=== PATIENT | male | born 1950 | race Caucasian/White ===

== ENCOUNTER 2017-06-28 18:31 | Emergency (ER) | payer MEDICARE, OTHER ==
[2017-06-28] MEDS ORDERED: SODIUM CHLORIDE 0.9% 1,000 ML IV ONE (18:41)
--- NOTE | 2017-06-28 18:55 | ED Physician Documentation ---
History of Present Illness - Stated complaint Stated Complaint: F/N/V - Chief complaint Chief Complaint: Fever - History obtained from History obtained from: Patient, Family - History of Present Illness Pain level max: 4 Pain level now: 4 Improved by: nothing Worsened by: nothing - Additonal information Additional information: Patient is a 67-year-old male who presents to the emergency department complaining of a fever for the past 2 days. He also states he has had a "sour stomach". This is been ongoing for the past month. He states he has had EGDs and colonoscopies several times and he thinks they found an ulcer once. He thinks he is supposed to be on medication but is unsure. He does not know what medications he takes on a daily basis. He states his allergies are to oxycodone and "other stuff". 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 Recent prostate biopsy for prostate CA. no current chemotherapy or radiation. Family member recently was diagnosed with influenza. They are going to try to find someone to find his medications at home so that we can get an accurate medication list as well as a allergy list. Review of Systems Ten Systems: 10 systems reviewed and negative Constitutional: reports: Fever Nose: denies: Rhinorrhea / runny nose, Congestion Throat: denies: Sore throat Cardiac: denies: Chest pain / pressure Respiratory: denies: Dyspnea, Cough, Hemoptysis, Wheezing GI: reports: Abdominal Pain (crampy, diffuse), Nausea, Vomiting : denies: Dysuria Skin: denies: Rash, Abrasion (s) Musculoskeletal: denies: Neck pain, Back pain Neurologic: denies: Headache PD PAST MEDICAL HISTORY - Past Medical History Past Medical History: Yes Endocrine/Autoimmune: Type 2 diabetes - Past Surgical History Past Surgical History: Yes Other past surgical history: liver transplant - Present Medications Home Medications: Ambulatory Orders Medication Instructions Recorded Confirmed Amoxicillin/Potassium Clav [Amox 1 each PO BID 06/28/17 Tr-K Clv 875-125 mg Tab] Finasteride 5 mg PO DAILY 06/28/17 Glimepiride [Amaryl] 4 mg PO BID 06/28/17 Lisinopril 10 mg PO DAILY 06/28/17 Metformin HCl 500 mg PO BID 06/28/17 Omeprazole 40 mg PO DAILY 06/28/17 Ondansetron Odt [Zofran] 4 mg TL Q6H PRN #10 tablet 06/28/17 Pantoprazole Sodium [Protonix] 20 mg PO DAILY #14 tablet. 06/28/17 Pravastatin [Pravachol] 40 mg ORAL DAILY 06/28/17 Tacrolimus 0.5 mg PO BID 06/28/17 06/28/17 - Allergies Allergies/Adverse Reactions: Allergies Allergy/AdvReac Type Severity Reaction Status Date / Time acetaminophen [From Tylenol] Allergy Rash Verified 06/28/17 18:40 bee venom protein (honey bee) Allergy Rash Verified 06/28/17 18:40 NSAIDS (Non-Steroidal Allergy Unknown Verified 06/28/17 18:40 Anti-Inflamma oxycodone Allergy Rash Verified 06/28/17 18:40 tetracycline Allergy Hives Verified 06/28/17 18:40 tramadol Allergy Rash Verified 06/28/17 18:40 - Living Situation Living Situation: reports: With family Living Arrangement: reports: At home - Social History Does the pt smoke?: No Does the pt drink ETOH?: No Does the pt have substance abuse?: No - Family History Family history: reports: Non contributory PD ED PE NORMAL - Vitals Vital signs reviewed: Yes - General General: Alert and oriented X 3, No acute distress, Well developed/nourished - HEENT HEENT: PERRL, Moist mucous membranes - Neck Neck: Supple, no meningeal sign - Cardiac Cardiac: RRR, Strong equal pulses - Respiratory Respiratory: No respiratory distress, Clear bilaterally - Abdomen Abdomen: Soft, Non distended, Other (mild diffuse TTP without peritoneal signs) - Back Back: No CVA TTP, No spinal TTP - Derm Derm: Warm and dry, No rash - Extremities Extremities: No calf tenderness / cord - Neuro Neuro: Alert and oriented X 3 - Psych Psych: Normal mood, Normal affect Results - Vitals Vitals: Vital Signs - 24 hr 06/28/17 06/28/17 06/28/17 18:36 21:20 23:10 Temperature 38.1 C H 37.5 C 37.3 C Heart Rate 118 H 105 H 117 H Respiratory 18 18 12 Rate Blood Pressure 139/95 H 121/84 H 109/65 O2 Saturation 96 95 95 Oxygen O2 Source Room air - Labs Labs: Laboratory Tests 06/28/17 06/28/17 06/28/17 18:50 18:50 18:50 WBC 6.8 RBC 5.26 Hgb 15.9 Hct 46.6 MCV 88.6 MCH 30.2 MCHC 34.1 RDW 15.1 H Plt Count 166 MPV 7.3 L Neut # 5.8 Lymph # 0.6 L Geary # 0.3 Eos # 0.1 Baso # 0.0 Absolute Nucleated RBC 0.01 Nucleated RBC % 0.1 Sodium 138 Potassium 4.0 Chloride 101 Carbon Dioxide 21 Anion Gap 16.0 H BUN 28 H Creatinine 1.3 H Estimated GFR (MDRD) 55 L Glucose 246 H Lactic Acid 1.9 Calcium 9.5 Total Bilirubin 1.9 H AST 34 ALT 31 Alkaline Phosphatase 45 Total Protein 8.2 Albumin 4.5 Globulin 3.7 Albumin/Globulin Ratio 1.2 Lipase 39 Urine Color Urine Clarity Urine pH Ur Specific [place] Urine Protein Urine Glucose (UA) Urine Ketones Urine Occult Blood Urine Nitrite Urine Bilirubin Urine Urobilinogen Ur Leukocyte Esterase Urine RBC Urine WBC Ur Squamous Epith Cells Urine Bacteria Urine Casts Urine Mucus Ur Microscopic Review Urine Culture Comments Influenza A (Rapid) Influenza B (Rapid) Influenza Types A,B Ag 06/28/17 06/28/17 19:07 19:35 WBC RBC Hgb Hct MCV MCH MCHC RDW Plt Count MPV Neut # Lymph # Ge[place] # Eos # Baso # Absolute Nucleated RBC Nucleated RBC % Sodium Potassium Chloride Carbon Dioxide Anion Gap BUN Creatinine Estimated GFR (MDRD) Glucose Lactic Acid Calcium Total Bilirubin AST ALT Alkaline Phosphatase Total Protein Albumin Globulin Albumin/Globulin Ratio Lipase Urine Color YELLOW Urine Clarity CLEAR Urine pH 5.5 Ur Specific [place] >=1.030 H Urine Protein TRACE Urine Glucose (UA) 250 H Urine Ketones 15 H Urine Occult Blood LARGE H Urine Nitrite NEGATIVE Urine Bilirubin NEGATIVE Urine Urobilinogen 1 (NORMAL) Ur Leukocyte Esterase NEGATIVE Urine RBC TNTC H Urine WBC 0-3 Ur Squamous Epith Cells RARE Squamous Urine Bacteria Few Urine Casts 0-2 Hyaline Casts Urine Mucus Moderate Strands Ur Microscopic Review INDICATED Urine Culture Comments NOT INDICATED Influenza A (Rapid) Negative Influenza B (Rapid) Negative Influenza Types A,B Ag - PD MEDICAL DECISION MAKING - ED course Complexity details: reviewed results, re-evaluated patient, considered differential, d/w patient, d/w family ED course: Patient is a 67-year-old male who presents to the emergency department with what appears to be 2 issues. The first appears to be nausea and vomiting for the past month. Likely secondary to recurrent ulcers. Given Protonix and will place him back on Protonix for this. Also given Zofran and his nausea resolved. Also appears to have a viral syndrome. No coughing. Has been exposed to viral syndromes recently. No cough, hypoxia or tachypnea to suggest pneumonia. CXR held after discussion with patient and family. Given IV fluids and feels better. Tolerating p.o. well. Lactate is normal. Will return if he worsens. Patient and family counseled regarding signs and symptoms for which I believe and urgent re-evaluation would be necessary. Patient with good understanding of and agreement to plan and is comfortable going home at this time This document was made in part using voice recognition software. While efforts are made to proofread this document, sound alike and grammatical errors may occur. Departure - Departure Disposition: 01 Home, Self Care Clinical Impression: Fever Qualifiers: Fever type: unspecified Qualified Code(s): R50.9 - Fever, unspecified Vomiting Qualifiers: Vomiting type: unspecified Vomiting Intractability: non-intractable Nausea presence: with nausea Qualified Code(s): R11.2 - Nausea with vomiting, unspecified Condition: Good Instructions: ED Fever Unconf Cause, ED Nausea Vomiting Follow-Up: your,doctor in 3 days for recheck [Other] Prescriptions: Ondansetron Odt [Zofran] 4 mg TL Q6H PRN #10 tablet PRN Reason: Nausea / Vomiting Pantoprazole Sodium [Protonix] 20 mg PO DAILY #14 tablet. Comments: Drink plenty of fluids and rest. Return if Paul worsens. Discharge Date/Time: 06/28/17 23:20
[2017-06-28 19:03] LABS: BASOPHILS % (AUTO) 0.4 %; EOSINOPHILS # (AUTO) 0.1 10^3/uL (0.0-0.7); EOSINOPHILS % (AUTO) 1.6 %; HGB - HEMOGLOBIN 15.9 g/dL (14.0-18.0); LYMPHOCYTES # (AUTO) 0.6 10^3/uL (1.5-3.5); LYMPHOCYTES % (AUTO) 8.3 %; MEAN CORPUSCULAR HEMOGLOBIN 30.2 pg (27.0-31.0); MEAN CORPUSCULAR HGB CONC 34.1 g/dL (32.0-36.0); MEAN CORPUSCULAR VOLUME 88.6 fL (80.0-94.0); MEAN PLATELET VOLUME 7.3 fL (7.4-11.4); MONOCYTES # (AUTO) 0.3 10^3/uL (0.0-1.0); MONOCYTES % (AUTO) 4.8 %; NEUTROPHILS # (AUTO) 5.8 10^3/uL (1.5-6.6); NEUTROPHILS % (AUTO) 84.9 %; PLT - PLATELET COUNT 166 10^3/uL (130-450); RED BLOOD COUNT 5.26 10^6/uL (4.70-6.10); RED CELL DISTRIBUTION WIDTH 15.1 % (12.0-15.0); WHITE BLOOD COUNT 6.8 x10^3/uL (4.8-10.8)
[2017-06-28 19:16] LABS: ALBUMIN 4.5 g/dL (3.2-5.5); ALBUMIN/GLOBULIN RATIO 1.2 (1.0-2.2); BILIRUBIN,TOTAL 1.9 mg/dL (0.2-1.0); CALCIUM 9.5 mg/dL (8.5-10.3); CREATININE 1.3 mg/dL (0.6-1.2); TOTAL PROTEIN 8.2 g/dL (6.7-8.2)
[2017-06-28 19:45] LABS: GLUCOSE, URINE (UA) 250 mg/dL (NEGATIVE); KETONES,URINE (UA) 15 mg/dL (NEGATIVE); LEUKOCYTE ESTERASE, URINE NEGATIVE (NEGATIVE); NITRITE,URINE NEGATIVE (NEGATIVE); OCCULT BLOOD,URINE LARGE (NEGATIVE); PH,URINE 5.5 PH (5.0-7.5); PROTEIN,URINE TRACE mg/dL (NEGATIVE); UROBILINOGEN,URINE 1 (NORMAL) E.U./dL (NORMAL)
[2017-06-28 19:55] LABS: BACTERIA,URINE Few /HPF (None Seen); BILIRUBIN,URINE NEGATIVE (NEGATIVE); CASTS, URINE 0-2 Hyaline Casts /LPF; CLARITY,URINE CLEAR (CLEAR); ICTOTEST,URINE NEGATIVE; MUCUS,URINE Moderate Strands; RBC,URINE TNTC /HPF (0-5); SQUAMOUS EPITHELIAL CELL,UR RARE Squamous (<= Few)
[2017-06-28] MEDS ORDERED: ONDANSETRON 4 MG/2 ML VIAL IVP STA (21:02)
[2017-06-28] MEDS ORDERED: PANTOPRAZOLE 40 MG VIAL IVP STA (21:03)
[2017-06-28 23:11] VITALS: BP 109/65
== END 2017-06-28 23:20 | disposition home or self-care (01) ==
LOC: ED 18:31
DX: R50.9 Fever, unspecified (principal); R11.2 Nausea with vomiting, unspecified; E11.9 Type 2 diabetes mellitus without complications; Z79.84 Long term (current) use of oral hypoglycemic drugs; Z94.4 Liver transplant status
CPT/HCPCS: 36415; 80053; 81001; 81003; 83605; 83690; 85025; 87086; 87275; 87276; 96361; 96374; 96375; 99283

== ENCOUNTER 2020-12-15 17:55 | Emergency (ER) | payer MEDICARE, OTHER ==
--- NOTE | 2020-12-15 18:26 | ED Physician Documentation ---
History of Present Illness - Stated complaint Stated Complaint: ABNORMAL LABS - Chief complaint Chief Complaint: General - Additonal information Additional information: 70-year-old male presents the emergency department for evaluation of reportedly elevated potassium. 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 He receives Chemotherapy sessions every 3 weeks with a total of 6 planned. He has undergone 3 thus far. He also has a history of a liver transplant 15 years ago secondary to liver cancer. He is currently on tacr olimus as an immune suppressant. He had screening labs obtained at the [facility] Friday and was notified today that his potassium was 5.8 and he should seek evaluation in the emergency department. He denies any chest pain or shortness of air. He would not be seeking care in the emergency department if he had not been notified otherwise. Review of Systems Constitutional: reports: Other (hair loss). denies: Fever, Chills Eyes: reports: Reviewed and negative Nose: reports: Reviewed and negative Throat: reports: Reviewed and negative Cardiac: denies: Chest pain / pressure, Palpitations Respiratory: denies: Dyspnea, Cough GI: reports: Abdominal Pain, Nausea, Vomiting : denies: Dysuria, Frequency Skin: denies: Rash, Lesions Musculoskeletal: reports: Reviewed and negative PD PAST MEDICAL HISTORY - Past Medical History Endocrine/Autoimmune: Type 2 diabetes GI: GERD, Hepatitis, Cirrhosis : Other - Past Surgical History Past Surgical History: Yes - Present Medications Home Medications: Ambulatory Orders Medication Instructions Recorded Confirmed Amoxicillin/Potassium Clav [Amox 1 each PO BID 06/28/17 Tr-K Clv 875-125 mg Tab] Finasteride 5 mg PO DAILY 06/28/17 Glimepiride [Amaryl] 4 mg PO BID 06/28/17 Metformin HCl 500 mg PO BID 06/28/17 Omeprazole 40 mg PO DAILY 06/28/17 Ondansetron Odt [Zofran] 4 mg TL Q6H PRN #10 tablet 06/28/17 Pantoprazole Sodium [Protonix] 20 mg PO DAILY #14 tablet. 06/28/17 Pravastatin [Pravachol] 40 mg ORAL DAILY 06/28/17 Tacrolimus 0.5 mg PO BID 06/28/17 06/28/17 lisinopriL [Lisinopril] 10 mg PO DAILY 06/28/17 - Allergies Allergies/Adverse Reactions: Allergies Allergy/AdvReac Type Severity Reaction Status Date / Time acetaminophen [From Tylenol] Allergy Rash Verified 12/15/20 18:00 bee venom protein (honey bee) Allergy Rash Verified 12/15/20 18:00 NSAIDS (Non-Steroidal Allergy Unknown Verified 12/15/20 18:00 Anti-Inflamma oxycodone Allergy Rash Verified 12/15/20 18:00 tetracycline Allergy Hives Verified 12/15/20 18:00 tramadol Allergy Rash Verified 12/15/20 18:00 - Social History Does the pt smoke?: No Smoking Status: Never smoker Does the pt drink ETOH?: No Does the pt have substance abuse?: No - POLST Patient has POLST: No PD ED PE EXPANDED - General General: Alert, No acute distress, Other (chronically ill appearance) - Neck Neck: Supple w/out meningeal sx. No: Adenopathy - Cardiac Cardiac: Regular Rate, Radial strong equal, Pedal strong equal, Cap refill < 2 sec - Respiratory Respiratory: Clear to ausultation jose. No: Distress, Labored - Extremities Extremities: Pedal edema bilateral. No: Right calf TTP/cord - Neuro Neuro: Alert and Oriented X 3, CNII-XII intact - GCS Eye Opening: Spontaneous Motor: Obeys Commands Verbal: Oriented Total: 15 Results - Vitals Vitals: Vital Signs - 24 hr 12/15/20 18:00 Temperature 36.4 C L Heart Rate 77 Respiratory 18 Rate Blood Pressure 112/60 O2 Saturation 98 Oxygen O2 Source Room air - Labs Labs: Laboratory Tests 12/15/20 18:11 Sodium 136 Potassium 5.1 H Chloride 109 Carbon Dioxide 21 Anion Gap 6.0 BUN 43 H Creatinine 1.1 Estimated GFR (MDRD) 67 L Glucose 238 H Calcium 8.0 L Phosphorus 3.2 Magnesium 1.1 L PD MEDICAL DECISION MAKING - ED course Complexity details: reviewed results, d/w patient, d/w family ED course: 70-year-old male presents to the emergency department for evaluation of a reportedly elevated potassium of 5.8 drawn on routine labs [facility] He is currently undergoing treatment for lymphoma with metastasis to the spine bowel spleen and liver. He also has a history of a liver transplant. Screening BMP today shows a potassium of 5.1. Patient is on furosemide. No further treatment is indicated for this potassium at this time. Return precautions were discussed with the and the patient. Departure - Departure Disposition: 01 Home, Self Care Clinical Impression: Serum potassium elevated Instructions: Hyperkalemia Dc Comments: Paul you were advised to come to the emergency department for evaluation of your potassium as the labs drawn on Friday showed that the potassium was 5.8. Your potassium right now is 5.1. The cutoff for normal is 5. There is no indication for treatment of your potassium at this time. I wish you luck in your journey. You are to continue further treatment as prescribed by your oncologist and continue all other medications as previously prescribed.
[2020-12-15 18:44] LABS: CREATININE 1.1 mg/dL (0.6-1.2); MAGNESIUM 1.1 mg/dL (1.7-2.8); PHOSPHORUS 3.2 mg/dL (2.5-4.6); POTASSIUM 5.1 mmol/L (3.5-5.0)
[2020-12-15 19:21] VITALS: BP 115/61
== END 2020-12-15 19:21 | disposition home or self-care (01) ==
LOC: ED 17:55
DX: E87.5 Hyperkalemia (principal); C85.90 Non-Hodgkin lymphoma, unspecified, unspecified site; Z94.4 Liver transplant status
CPT/HCPCS: 36415; 80048; 83735; 84100; 99281; 99283